=== PATIENT | female | born 1980 | race African-American/Black ===

== ENCOUNTER 2021-02-27 12:33 | Outpatient (CLI) | payer OTHER | END 2021-02-27 12:34 | disposition home or self-care (01) | LOC: BICMAMMO 12:33 | PROVIDERS: ATTEND Internal Medicine | DX: Z12.31 Encounter for screening mammogram for malignant neoplasm of breast (principal) | CPT/HCPCS: 77063; 77067 ==

== ENCOUNTER 2023-03-16 13:55 | Outpatient (CLI) | payer OTHER | END 2023-03-16 13:56 | disposition home or self-care (01) | LOC: BICMAMMO 13:55 | PROVIDERS: ATTEND Internal Medicine | DX: Z12.31 Encounter for screening mammogram for malignant neoplasm of breast (principal) | CPT/HCPCS: 77063; 77067 ==